=== PATIENT | male | born 1970 | race Caucasian/White ===

== ENCOUNTER 2023-11-20 09:14 | Day surgery (SDC) | payer BC, OTHER ==
[2023-10-22 18:13] VITALS: BMI 38.9
[2023-11-20] MEDS ORDERED: CEFAZOLIN 2 GM in DEXTROSE 5%-WATER - 50 ML IVPB ONE (09:20)
[2023-11-20] MEDS ORDERED: BUPIVACAINE HCL/EPINEPHRINE/PF 30 ML VIAL IJ ONE (10:43)
[2023-11-20] MEDS ORDERED: ceFAZolin SODIUM 1 GM VIAL ONE (10:44)
[2023-11-20] MEDS ORDERED: MIDAZOLAM HCL 2 MG/2 ML SINGLE DOSE VIAL ONE ×2 (10:45)
[2023-11-20] MEDS ORDERED: PROPOFOL 20 ML ONE ×2 (11:00→11:14)
[2023-11-20] MEDS ORDERED: methylPREDNISolone ACET (DEPO) 40 MG/1 ML VIAL ONE (11:22)
[2023-11-20] MEDS ORDERED: ACETAMINOPHEN 325 MG TABLET (FP) PO PRN (11:48)
[2023-11-20] MEDS ORDERED: FENTANYL CITRATE/PF 50 MCG/ML VIAL ONE ×2 (12:00→12:15)
[2023-11-20] MEDS ORDERED: LACTATED RINGERS SOLUTION 1,000 ML IV SCH ×2 (12:00→12:15)
[2023-11-20] MEDS ORDERED: ONDANSETRON 4 MG/2 ML VIAL IVPUSH PRN (12:01)
[2023-11-20] MEDS ORDERED: oxyCODONE HCL 5 MG TABLET PO PRN ×2 (12:01→12:03)
[2023-11-20] MEDS: ACETAMINOPHEN 1000 MG/100 ML BAG IVPB ONE (12:05)
[2023-11-20] MEDS ORDERED: ONDANSETRON 4 MG/2 ML VIAL ONE (12:17)
[2023-11-20] MEDS: ONDANSETRON 4 MG/2 ML VIAL IVPUSH PRN (12:30)
[2023-11-20] MEDS ORDERED: oxyCODONE HCL 5 MG TABLET ONE (12:52)
[2023-11-20] MEDS: oxyCODONE HCL 5 MG TABLET PO PRN (12:55)
[2023-11-20 13:11] VITALS: RESP 19; TEMP 97.8
[2023-11-20 13:37] VITALS: BP 124/80; PULSE 62
== END 2023-11-20 13:35 | disposition home or self-care (01) ==
LOC: FASU 09:14
PROVIDERS: ATTEND Orthopaedic Surgery
PROC: 0SBD4ZZ Excision of Left Knee Joint, Percutaneous Endoscopic Approach (ICD-10-PCS; principal; 2023-11-20 11:18)
DX: S83.242A Other tear of medial meniscus, current injury, left knee, initial encounter (principal); M65.862 Other synovitis and tenosynovitis, left lower leg; X58.XXXA Exposure to other specified factors, initial encounter; Y92.9 Unspecified place or not applicable; Y93.9 Activity, unspecified
CPT/HCPCS: 94760; C1713; J0131